=== PATIENT | male | born 1985 | race Caucasian/White ===

== ENCOUNTER 2021-09-12 22:44 | Emergency (ER) | payer BC ==
[2021-09-13 00:45] LABS: HEMOGLOBIN 15.6 gm/dl (14.0-17.5); RED BLOOD COUNT 5.32 M/UL (4.20-5.50); WHITE BLOOD COUNT 14.1 K/UL (4.5-11.0)
[2021-09-13 01:10] LABS: BUN/CREATININE RATIO 12 (0-10)
== END 2021-09-13 04:00 | disposition left against medical advice (07) ==
LOC: ER1 22:44
PROVIDERS: Physician Assistant
DX: R07.9 Chest pain, unspecified (principal); R06.02 Shortness of breath; K21.9 Gastro-esophageal reflux disease without esophagitis; F17.210 Nicotine dependence, cigarettes, uncomplicated
CPT/HCPCS: 71045; 80053; 82550; 82553; 83874; 83880; 84484; 85025; 85379; 85610; 85730; 93005; 99283; Q9967

== ENCOUNTER → 2021-09-19 | Outpatient (CLI) | payer BC ==
[2021-09-19 09:17] LABS: HEMOGLOBIN 15.2 gm/dl (14.0-17.5); RED BLOOD COUNT 5.26 M/UL (4.20-5.50); WHITE BLOOD COUNT 9.7 K/UL (4.5-11.0)
[2021-09-20 07:12] LABS: A/G RATIO 2.2 (1.2-2.2); ALKALINE PHOSPHATASE, S 119 IU/L (44-121); ALT (SGPT) 54 IU/L (0-44); AST (SGOT) 34 IU/L (0-40); BILIRUBIN, TOTAL 0.2 mg/dL (0.0-1.2); BUN 14 mg/dL (6-20); BUN/CREATININE RATIO 12 (9-20); CALCIUM, SERUM 9.1 mg/dL (8.7-10.2); CARBON DIOXIDE, TOTAL 23 mmol/L (20-29); CHLORIDE, SERUM 106 mmol/L (96-106); CREATININE, SERUM 1.17 mg/dL (0.76-1.27); EGFR IF AFRICN AM 92 (>59); EGFR IF NONAFRICN AM 79 (>59); GLUCOSE, SERUM 106 mg/dL (65-99); POTASSIUM, SERUM 4.4 mmol/L (3.5-5.2); PROTEIN, TOTAL, SERUM 6.4 g/dL (6.0-8.5); SODIUM, SERUM 144 mmol/L (134-144)
[2021-09-20 08:15] LABS: CHOLESTEROL, TOTAL 180 mg/dL (100-199); ESTIM. AVG GLU (EAG) 131 mg/dL (.); HDL CHOLESTEROL 24 mg/dL (>39); HEMOGLOBIN A1C 6.2 % (4.8-5.6); LDL CHOLESTEROL CALC 106 mg/dL (0-99); LDL/HDL RATIO 4.4 ratio (0.0-3.6); T. CHOL/HDL RATIO 7.5 ratio (0.0-5.0); TRIGLYCERIDES 292 mg/dL (0-149)
== END ==
LOC: LAB 08:46
PROVIDERS: Nurse Practitioner Family
DX: Z13.1 Encounter for screening for diabetes mellitus (principal); K21.9 Gastro-esophageal reflux disease without esophagitis; E78.5 Hyperlipidemia, unspecified
CPT/HCPCS: 36415; 80053; 80061; 83036; 85025

== ENCOUNTER → 2021-09-19 | Outpatient (CLI) | payer BC | LOC: EXRD 07:52 | DX: R10.11 Right upper quadrant pain (principal) | CPT/HCPCS: 76705 ==